=== PATIENT | female | born 1960 | race Caucasian/White ===

== ENCOUNTER 2016-08-21 21:19 | Emergency (ER) | payer MEDICARE ==
[~2016-08-21] VITALS: Ht 152.4 cm; Wt 56.7 kg
[~2016-08-21 21:19] MED LIST: BIAXIN500 MG PO; CALCIUM 500500 M1 PO; CIPRO500 MG PO; CIPROFLOXACIN500 MG PO; CLARITHROMYCIN500 MG PO; CLARITIN-D 24 H1 TER PO; ERY-TAB500 M1 PO; FLONASE 0.05% 121 EA NAS; FLUOXETINE HCL10 MG PO; IBUPROFEN 30 M800 MG PO; IRON325 M1 PO; MOTRIN800 MG PO; SUDAFED60 MG PO; TESSALON PERLE200 MG PO; VITAMIN B121000 MC2 SL; VITAMIN C1 TAB PO; VOLTAREN50 M1 PO; XANAX1 MG PO; ZITHROMAX Z PA250 MG PO; ZYRTEC10 MG PO
[2016-08-21] MEDS ORDERED: CEPHALEXIN500 M1 PO (22:32)
[2016-08-21] MEDS ORDERED: HYDROCODONE BIT1 T11 PO (22:32)
[2016-08-22] MEDS ORDERED: CEPHALEXIN500 M1 PO (12:50)
== END 2016-08-21 22:43 | disposition home or self-care (01) ==
LOC: ED 21:19
DX: S92.532B Displaced fracture of distal phalanx of left lesser toe(s), initial encounter for open fracture (principal); F17.200 Nicotine dependence, unspecified, uncomplicated; Z88.0 Allergy status to penicillin; Z88.2 Allergy status to sulfonamides; Z88.6 Allergy status to analgesic agent; V19.9XXA Pedal cyclist (driver) (passenger) injured in unspecified traffic accident, initial encounter; Y93.89 Activity, other specified; Y92.9 Unspecified place or not applicable; Y99.9 Unspecified external cause status

== ENCOUNTER 2017-03-22 11:02 | Emergency (ER) | payer MEDICARE ==
[~2017-03-22] VITALS: Ht 162.5 cm; Wt 56.7 kg
[~2017-03-22 11:02] MED LIST changes: +CEPHALEXIN500 M1 PO; +HYDROCODONE BIT1 T11 PO
== END 2017-03-22 12:27 | disposition home or self-care (01) ==
LOC: ED 11:02
DX: Z00.8 Encounter for other general examination (principal); Z88.0 Allergy status to penicillin; Z88.2 Allergy status to sulfonamides; Z88.6 Allergy status to analgesic agent; F17.200 Nicotine dependence, unspecified, uncomplicated

== ENCOUNTER 2019-06-05 13:05 | Emergency (ER) | payer MEDICARE ==
[~2019-06-05] VITALS: Ht 162.5 cm; Wt 74.8 kg
[2019-06-05] MEDS ORDERED: DOXYCYCLINE100 M3 PO (14:19)
== END 2019-06-05 14:37 | disposition home or self-care (01) ==
LOC: ED 13:05
DX: J01.90 Acute sinusitis, unspecified (principal); F17.200 Nicotine dependence, unspecified, uncomplicated; Z88.0 Allergy status to penicillin; Z88.2 Allergy status to sulfonamides; Z88.5 Allergy status to narcotic agent; Z91.041 Radiographic dye allergy status

== ENCOUNTER 2021-12-05 10:12 | Emergency (ER) | payer OTHER, MEDICARE ==
[~2021-12-05] VITALS: Wt 75.7 kg
[~2021-12-05 10:12] MED LIST changes: +DOXYCYCLINE100 M3 PO
[2021-12-05] MEDS ORDERED: CLARITIN10 MG PO (10:46)
[2021-12-05] MEDS ORDERED: ALA-CORT28.4 GM T (10:46)
== END 2021-12-05 10:53 | disposition home or self-care (01) ==
LOC: ED 10:12
DX: S50.861A Insect bite (nonvenomous) of right forearm, initial encounter (principal); R09.81 Nasal congestion; Z88.0 Allergy status to penicillin; Z88.2 Allergy status to sulfonamides; Z88.8 Allergy status to other drugs, medicaments and biological substances; W57.XXXA Bitten or stung by nonvenomous insect and other nonvenomous arthropods, initial encounter; Y93.89 Activity, other specified; Y92.89 Other specified places as the place of occurrence of the external cause; Y99.8 Other external cause status

== ENCOUNTER 2022-07-03 07:59 | Emergency (ER) | payer OTHER, MEDICARE ==
[~2022-07-03] VITALS: Ht 165.1 cm; Wt 78.0 kg
[~2022-07-03 07:59] MED LIST changes: +ALA-CORT28.4 GM T; +CLARITIN10 MG PO
[2022-07-03] MEDS ORDERED: VIBRAMYCIN100 MG PO (09:01)
== END 2022-07-03 09:15 | disposition home or self-care (01) ==
LOC: ED 07:59
DX: J01.90 Acute sinusitis, unspecified (principal); Z88.0 Allergy status to penicillin; Z88.2 Allergy status to sulfonamides; Z88.8 Allergy status to other drugs, medicaments and biological substances

== ENCOUNTER 2023-04-22 16:55 | Emergency (ER) | payer OTHER ==
[~2023-04-22] VITALS: Wt 74.8 kg
[~2023-04-22 16:55] MED LIST changes: +VIBRAMYCIN100 MG PO
[2023-04-22 17:32] LABS: BASO % 0.3 % (0.0-1.0); EOS # 0.2 10*3/uL (0.0-0.4); EOS % 3.2 % (1.0-4.0); HEMATOCRIT 43.1 % (37.0-47.0); LYMPH # 2.1 10*3/uL (1.3-4.4); LYMPH % 31.8 % (27.0-41.0); MEAN CELL VOLUME 91.9 fl (81.0-99.0); MEAN CORPUSCULAR HGB 30.1 pg (27.0-31.0); MEAN CORPUSCULAR HGB CONC 32.7 g/dl (33.0-37.0); MEAN PLATELET VOLUME 10.7 fl (9.6-12.3); MONO # 0.5 10*3/uL (0.1-1.0); MONO % 7.2 % (3.0-9.0); NEUT # 3.8 10*3/uL (2.3-7.9); NEUT % 57.3 % (47.0-73.0); PLATELET COUNT AUTOMATED 197 10*3/uL (130-400); RED BLOOD COUNT 4.69 10*6/uL (4.10-5.10); RED CELL DISTRI WIDTH 14.6 % (0-14.5); WHITE BLOOD COUNT 6.5 10*3/uL (4.8-10.8)
[2023-04-22 18:01] LABS: ALKALINE PHOSPHATASE 102 U/L (46-116); BUN 13 mg/dl (9-23); CHLORIDE 109 mmol/L (98-107); POTASSIUM 4.2 mmol/L (3.4-5.1); SGPT/ALT 13 U/L (10-49); TOTAL PROTEIN 6.9 gm/dL (6.0-8.0)
[2023-04-22] MEDS ORDERED: VISTARIL25 MG PO (19:46)
== END 2023-04-22 19:55 | disposition home or self-care (01) ==
LOC: ED 16:55
PROVIDERS: Nurse Practitioner
DX: F41.9 Anxiety disorder, unspecified (principal); K21.9 Gastro-esophageal reflux disease without esophagitis; R55 Syncope and collapse; Z88.0 Allergy status to penicillin; Z88.2 Allergy status to sulfonamides; Z88.5 Allergy status to narcotic agent; Z91.041 Radiographic dye allergy status

== ENCOUNTER → 2024-02-20 | Outpatient (CLI) | payer OTHER ==
[~2024-02-20] MED LIST changes: +VISTARIL25 MG PO
[2024-02-20 11:17] LABS: HEMATOCRIT 42.4 % (37.0-47.0); MEAN CELL VOLUME 90.6 fl (81.0-99.0); MEAN CORPUSCULAR HGB 29.7 pg (27.0-31.0); MEAN CORPUSCULAR HGB CONC 32.8 g/dl (33.0-37.0); MEAN PLATELET VOLUME 10.4 fl (9.6-12.3); RED BLOOD COUNT 4.68 10*6/uL (4.10-5.10); RED CELL DISTRI WIDTH 14.8 % (0-14.5); WHITE BLOOD COUNT 5.4 10*3/uL (4.8-10.8)
[2024-02-20 11:37] LABS: ALKALINE PHOSPHATASE 99 U/L (46-116); BUN 14 mg/dl (9-23); CHLORIDE 109 mmol/L (98-107); CHOLESTEROL 198 mg/dL (<200); LDL CHOLESTEROL 124 mg/dL (9-159); POTASSIUM 4.5 mmol/L (3.4-5.1); SGPT/ALT 19 U/L (5-49); TOTAL PROTEIN 6.6 gm/dL (6.0-8.0); TRIGLYCERIDES 104 mg/dl (<150)
== END | disposition home or self-care (01) ==
LOC: LAB 10:56
PROVIDERS: ATTEND Family Medicine
DX: Z13.220 Encounter for screening for lipoid disorders (principal); M50.322 Other cervical disc degeneration at C5-C6 level; R20.2 Paresthesia of skin; E55.9 Vitamin D deficiency, unspecified; M25.78 Osteophyte, vertebrae

== ENCOUNTER 2024-09-08 19:40 | Emergency (ER) | payer OTHER ==
[~2024-09-08] VITALS: Ht 162.5 cm; Wt 77.1 kg
[2024-09-08] MEDS ORDERED: IBUPROFEN 800 MG TAB PO ONE (20:35)
[2024-09-08 21:02] LABS: BASO % 0.4 % (0.0-1.0); HEMATOCRIT 42.5 % (37.0-47.0); MEAN CELL VOLUME 91.6 fl (81.0-99.0); MEAN CORPUSCULAR HGB 29.1 pg (27.0-31.0); MEAN CORPUSCULAR HGB CONC 31.8 g/dl (33.0-37.0); MEAN PLATELET VOLUME 10.7 fl (9.6-12.3); MONO # 0.4 10*3/uL (0.1-1.0); NEUT # 4.4 10*3/uL (2.3-7.9); NEUT % 87.2 % (47.0-73.0); PLATELET COUNT AUTOMATED 169 10*3/uL (130-400); RED BLOOD COUNT 4.64 10*6/uL (4.10-5.10)
[2024-09-08] MEDS ORDERED: Ondansetron Hydrochloride 4 MG TAB SL ONE (21:25)
[2024-09-08 21:32] LABS: ALKALINE PHOSPHATASE 107 U/L (46-116); BUN 10 mg/dl (9-23); CHLORIDE 102 mmol/L (98-107); SGPT/ALT 19 U/L (5-49); TOTAL PROTEIN 6.8 gm/dL (6.0-8.0)
[2024-09-08] MEDS ORDERED: Doxycycline Hyclate 100 MG CAP PO ONE (21:55)
[2024-09-08] MEDS ORDERED: VIBRAMYCIN100 MG PO (21:59)
== END 2024-09-08 22:05 | disposition home or self-care (01) ==
LOC: ED 19:40
PROVIDERS: Nurse Practitioner
DX: J32.0 Chronic maxillary sinusitis (principal); F41.9 Anxiety disorder, unspecified; Z88.0 Allergy status to penicillin; Z88.2 Allergy status to sulfonamides; Z88.5 Allergy status to narcotic agent; Z91.041 Radiographic dye allergy status; Z79.899 Other long term (current) drug therapy

== ENCOUNTER 2025-04-14 09:22 | Emergency (ER) | payer OTHER ==
[~2025-04-14] VITALS: Ht 165.1 cm; Wt 70.3 kg
[2025-04-14] MEDS ORDERED: SODIUM CHLORIDE 0.9% 1,000 ML IV ONE (09:45)
[2025-04-14] MEDS ORDERED: Ondansetron Hydrochloride 4 MG/2 ML VIAL IV ONE (09:45)
[2025-04-14 09:56] LABS: BASO # 0.0 10*3/uL (0.0-0.1); BASO % 0.5 % (0.0-1.0); EOS # 0.1 10*3/uL (0.0-0.4); EOS % 1.5 % (1.0-4.0); MEAN CELL VOLUME 91.2 fl (81.0-99.0); MEAN CORPUSCULAR HGB 29.5 pg (27.0-31.0); MEAN PLATELET VOLUME 10.2 fl (9.6-12.3); MONO # 0.5 10*3/uL (0.1-1.0); MONO % 6.6 % (3.0-9.0); NEUT # 5.2 10*3/uL (2.3-7.9); NEUT % 70.8 % (47.0-73.0); NUCLEATED RED BLOOD CELL 0.0 % (0.0-0.0); NUCLEATED RED BLOOD CELL 0.0 10*3/uL (0.0-0.0); PLATELET COUNT AUTOMATED 227 10*3/uL (130-400); RED CELL DISTRI WIDTH 14.6 % (0-14.5)
[2025-04-14 10:16] LABS: BUN 8 mg/dl (9-23)
[2025-04-14 10:57] LABS: BILIRUBIN Negative (Negative); BLOOD Negative (Negative); CLARITY Clear (Clear); COLOR Yellow (Yellow); KETONE 1+ (Negative); LEUKO ESTERASE Negative (Negative); NITRITE Negative (Negative); PH 5.5 (4.5-8.0); SPECIFIC GRAVITY 1.020 (1.001-1.030); UROBILINOGEN 1.0 E.U./dl (0.0-1.0)
[2025-04-14 11:25] LABS: BACTERIA 1+; MUCOUS 1+; RBC 0-2 rbc/hpf (0-2); WBC 0-2 wbc/hpf (0-5)
[2025-04-14] MEDS ORDERED: GABAPENTIN100 M2 PO (11:53)
[2025-04-14] MEDS ORDERED: DIAZEPAM5 MG PO (11:54)
[2025-04-14] MEDS ORDERED: TIZANIDINE HCL4 MG PO (11:54)
[2025-04-14] MEDS ORDERED: ONDANSETRON HYDR4 MG PO (11:54)
[2025-04-14] MEDS ORDERED: FAMOTIDINE20 M1 PO (11:54)
== END 2025-04-14 12:11 | disposition home or self-care (01) ==
LOC: ED 09:22
PROVIDERS: Emergency Medicine
DX: R59.1 Generalized enlarged lymph nodes (principal); R10.9 Unspecified abdominal pain; R91.1 Solitary pulmonary nodule; M54.50 Low back pain, unspecified; Z88.0 Allergy status to penicillin; Z88.2 Allergy status to sulfonamides; Z88.5 Allergy status to narcotic agent; Z91.041 Radiographic dye allergy status